=== PATIENT | male | born 1970 | race Caucasian/White ===

== ENCOUNTER 2018-01-24 08:00 | Outpatient (CLI) | payer OTHER ==
[2018-01-24 13:53] LABS: BUN - BLOOD UREA NITROGEN 18 mg/dL (6-20); CALCIUM 9.5 mg/dL (8.5-10.3); CARBON DIOXIDE - CO2 25 mmol/L (21-32); CHLORIDE 104 mmol/L (101-111); CHOLESTEROL 266 mg/dL; GFR - MDRD 80 (>89); GLUCOSE 96 mg/dL (70-100); HDL CHOLESTEROL 29 mg/dL; LDL CHOLESTEROL,CALCULATED 172 mg/dL; SODIUM 136 mmol/L (135-145); VLDL CHOLESTEROL 65 mg/dL
[2018-01-24 13:54] LABS: CHOL/HDL RATIO 9.2 (<5.0); LDL/HDL RATIO 5.9 (<3.6)
[2018-01-24 14:48] LABS: BASOPHILS % (AUTO) 0.6 %; EOSINOPHILS # (AUTO) 0.5 10^3/uL (0.0-0.7); EOSINOPHILS % (AUTO) 7.2 %; HGB - HEMOGLOBIN 15.8 g/dL (14.0-18.0); LYMPHOCYTES % (AUTO) 31.2 %; MEAN CORPUSCULAR HEMOGLOBIN 29.7 pg (27.0-31.0); MEAN CORPUSCULAR HGB CONC 33.9 g/dL (32.0-36.0); MEAN CORPUSCULAR VOLUME 87.3 fL (80.0-94.0); MEAN PLATELET VOLUME 7.5 fL (7.4-11.4); MONOCYTES # (AUTO) 0.6 10^3/uL (0.0-1.0); MONOCYTES % (AUTO) 9.3 %; NEUTROPHILS # (AUTO) 3.4 10^3/uL (1.5-6.6); NEUTROPHILS % (AUTO) 51.7 %; PLT - PLATELET COUNT 310 10^3/uL (130-450); RED BLOOD COUNT 5.32 10^6/uL (4.70-6.10); RED CELL DISTRIBUTION WIDTH 13.3 % (12.0-15.0); WHITE BLOOD COUNT 6.5 x10^3/uL (4.8-10.8)
== END 2018-01-24 08:01 | disposition home or self-care (01) ==
LOC: LAB.N 08:00
PROVIDERS: ATTEND Physician Assistant Medical
DX: Z00.00 Encounter for general adult medical examination without abnormal findings (principal)
CPT/HCPCS: 36415; 80048; 80061; 83721; 84443; 85025

== ENCOUNTER 2018-04-05 14:52 | Outpatient (CLI) | payer OTHER ==
--- NOTE | 2018-04-05 15:22 | XRAY Report ---
TWO VIEW CHEST: 04/05/2018 CLINICAL INDICATION: Difficulty breathing. FINDINGS: Frontal and lateral views of the chest demonstrate a normal cardiac silhouette. The lungs are clear. No effusion or pneumothorax is present. IMPRESSION: NORMAL CHEST. TD: 04/05/2018 15:21
== END 2018-04-05 14:53 | disposition home or self-care (01) ==
LOC: DI.N 14:52
PROVIDERS: ATTEND Nurse Practitioner Gerontology
DX: R06.00 Dyspnea, unspecified (principal)
CPT/HCPCS: 71046

== ENCOUNTER 2019-03-20 07:22 | Outpatient (CLI) | payer OTHER ==
--- NOTE | 2019-03-20 11:30 | CT Report ---
Reason: DEVIATED NASAL SEPTUM, POLYP OF NASAL CAVITY Procedure Date: 03/20/2019 Accession Number: [id number] / [id number] Procedure: CT - Sinuses CPT Code: FULL RESULT: EXAM: CT SINUS EXAM DATE: 03/20/2019 08:02 AM. HISTORY: Deviated nasal septum, polyp of nasal cavity. COMPARISONS: None. TECHNIQUE: Routine multi-axial CT imaging performed through the sinuses. Iodinated IV contrast: None. Reconstructions: Multiplanar reformats. In accordance with CT protocol optimization, one or more of the following dose reduction techniques were utilized for this exam: automated exposure control, adjustment of mA and/or KV based on patient size, or use of iterative reconstructive technique. FINDINGS: RIGHT Frontal: Mucoperiosteal thickening with air-fluid level. Ethmoid: Opacification of 75% of ethmoid air cells with demineralization. Maxillary: Mucoperiosteal thickening with demineralization and opacification of the outflow which is anatomically narrowed by Deja cells which are also opacified. Sphenoid: Minimal mucoperiosteal thickening posteriorly and medially. Drainage Pathways: The frontal recess is occluded with anatomic narrowing of the infundibulum by a prominent agger nasi and ethmoid bulla, ostiomeatal complex occluded with Deja cells as above and sphenoethmoidal recess is patent. LEFT Frontal: Mild mucoperiosteal thickening with frothy opacification of the frontal sinus drainage pathway. Ethmoid: Opacified with frothy opacifications. Maxillary: Mucoperiosteal thickening and anatomic narrowing of the ostiomeatal unit with Deja cells. Sphenoid: Mucoperiosteal thickening with anatomic narrowing of the sphenoethmoidal recess. Drainage Pathways: Patent but narrowed ostiomeatal unit by Deja cells. Frontal recess is anatomically narrowed at the infundibulum. Sphenoethmoidal recess is anatomically narrowed by ethmoid air cells. Nasal Cavity: Minimal nasal septal deviation. Osseous Structures: Mastoid air cells are clear. Orbits: Unremarkable. Other: None. IMPRESSION: Bilateral sinusitis with anatomic narrowing and occlusion of the drainage pathways as described. [facility]
== END 2019-03-20 07:23 | disposition home or self-care (01) ==
LOC: DI 07:22
PROVIDERS: ATTEND Otolaryngology Facial Plastic Surgery
DX: J34.2 Deviated nasal septum (principal); J33.0 Polyp of nasal cavity; J32.2 Chronic ethmoidal sinusitis
CPT/HCPCS: 70486

== ENCOUNTER 2022-11-09 07:20 | Outpatient (CLI) | payer OTHER ==
--- NOTE | 2022-11-09 09:41 | MRI Report ---
PROCEDURE: KNEE WO - LT INDICATIONS: SPRAIN LEFT KNEE TECHNIQUE: Noncontrast sagittal PD fast spin echo and T2 fast spin echo with fat saturation, sagittal 3-D spoile d GE with fat saturation; coronal T1 spin echo and PD fast spin echo with fat saturation, and axial P D fast spin echo with fat saturation through the knee. COMPARISON: None. FINDINGS: Image quality: Excellent. Anterior cruciate ligament: Intact. Posterior cruciate ligament: Intact. Medial collateral ligament: Thickening the proximal medial collateral ligament without surrounding e ron is most likely secondary to a remote prior low-grade sprain. Lateral collateral ligament: Intact. Medial meniscus: Mildly hyperintense linear signal is seen at the body of the medial meniscus extend ing to the middle third of the tibial articular surface and also involving the posterior horn, which is less specific in the postsurgical setting and may be secondary to fibrovascular granulation tissue or meniscal tearing. Lateral meniscus: Intact. Medial and lateral tendons: The semimembranosus tendon insertions appear intact. Visualized portion s of the pes anserinus tendons appear normal. The popliteus tendon appears intact. Iliotibial band appears normal. Anterior structures: There is mild patellar tendinosis. The distal quadriceps tendon is intact. Phillips llar alignment is normal. No femoral trochlear dysplasia or ventral trochlear prominence. Mild scarr ing in the infrapatellar fat pad. Bones: No acute trabecular bone injury or fracture. Medial femorotibial cartilage: Mild grade 2 cartilage thinning in the weightbearing portion of the m edial compartment. Lateral femorotibial cartilage: Minimal partial thickness cartilage irregularity at the posterior we ightbearing portion of the lateral tibial plateau. Patellofemoral cartilage: Deep cartilage fissuring is seen in the lateral patellar facet and shallow cartilage fissuring at the median ridge. Soft tissues: There is a small joint effusion. There is a moderate medial popliteal cyst. The muscu lature surrounding the knee is normal in bulk. Nonspecific subcutaneous prepatellar soft tissue edema is present. IMPRESSION: 1.Linear signal abnormality in the body of the medial meniscus extending to the posterior horn as wel l as specific in the postsurgical setting and may represent fibrovascular granulation tissue versus r ecurrent or residual meniscal tearing. 2.Chronic grade 1 sprain of the proximal medial collateral ligament. 3.Mild patellar tendinosis. 4.Minimal tricompartmental chondromalacia, most notable at the anterior compartment where there is fo franklin deep cartilage fissuring. 5.Small joint effusion. Moderate medial popliteal cyst. 6.Nonspecific subcutaneous prepatellar soft tissue edema or prepatellar bursal thickening. Reviewed by: Eduardo Nichole MD on 11/09/2022 9:39 AM PST Approved by: Eduardo Nichole MD on 11/09/2022 9:39 AM PST Station ID: [id number]
== END 2022-11-09 07:21 | disposition home or self-care (01) ==
LOC: DI 07:20
PROVIDERS: ATTEND Orthopaedic Surgery
DX: S83.412A Sprain of medial collateral ligament of left knee, initial encounter (principal); M94.262 Chondromalacia, left knee; M25.462 Effusion, left knee; M71.22 Synovial cyst of popliteal space [Baker], left knee